=== PATIENT | female | born 1990 | race Caucasian/White ===

== ENCOUNTER 2018-04-09 17:16 | Inpatient (IN) | payer OTHER ==
[~2018-04-09] VITALS: Ht 152.4 cm; Wt 69.4 kg
[2018-04-09] MEDS ORDERED: CEFTRIAXONE 1 G PREMIX 50 ML IV ONE (19:45)
[2018-04-09] MEDS ORDERED: KETOROLAC 30MG/ML VIAL IV ONE (19:45)
[2018-04-09] MEDS ORDERED: SODIUM CHLORIDE 0.9% 1000ML BAG (SEPSIS BOLUS) IV ONE (19:45)
[2018-04-09 20:23] LABS: HEMATOCRIT. 39.5 % (36.0-48.0); HEMOGLOBIN. 13.3 g/dL (12.0-16.0); MEAN CORPUSCULAR HEMOGLOBIN 29.7 pg (28.0-32.0); MEAN CORPUSCULAR VOLUME 88.3 fL (81.0-99.0); MEAN PLATELET VOLUME 8.5 fl (7.4-10.4); PLATELET 274 x1000/uL (130-400); RED BLOOD CELL COUNT 4.48 mill/uL (4.2-5.4); RED CELL DISTRIBUTION WIDTH 12.3 % (11.6-14.6)
[2018-04-09 20:28] LABS: INR 1.2; PROTHROMBIN TIME 11.6 sec (9.1-11.1)
[2018-04-09 20:30] LABS: CHLORIDE 100 mEq/L (98-107)
[2018-04-09 20:46] LABS: PLATELET ESTIMATE NORMAL
[2018-04-09 22:40] LABS: CLARITY URINE TURBID (CLEAR); COLOR URINE DARK YELLOW (YELLOW); KETONES URINE 2+ (NEGATIVE); LEUKOCYTE ESTERASE URINE 3+ (NEGATIVE); NITRITE URINE NEGATIVE (NEGATIVE); OCCULT BLOOD URINE 2+ (NEGATIVE); PROTEIN URINE 2+ (NEGATIVE); SPECIFIC GRAVITY URINE 1.027 (1.005-1.030)
[2018-04-09] MEDS ORDERED: ONDANSETRON HCL 4MG/2ML INJ IV ONE (23:15)
[2018-04-10 04:00] VITALS: BP 136/77
[2018-04-10 05:48] VITALS: BP 136/77
[2018-04-10] MEDS ORDERED: MORPHINE SULFATE 4 MG/ML CPJ (NOT FOR IM USE) IV PRN (06:46)
[2018-04-10] MEDS: ACETAMINOPHEN 325MG TABLET PO PRN ×3 (06:53→18:48)
[2018-04-10 08:00] VITALS: BP 106/55
[2018-04-10 12:00] VITALS: BP 126/66
[2018-04-10 15:29] LABS: BASOPHILS % 0.4 % (0.0-2.0); HEMOGLOBIN. 11.8 g/dL (12.0-16.0); LYMPHOCYTES % 7.8 % (20.0-50.0); MEAN CORPUSCULAR HEMOGLOBIN 29.4 pg (28.0-32.0); MEAN CORPUSCULAR VOLUME 87.4 fL (81.0-99.0); MEAN PLATELET VOLUME 8.4 fl (7.4-10.4); NEUTROPHILS % 84.8 % (40.0-76.0); PLATELET 204 x1000/uL (130-400); RED CELL DISTRIBUTION WIDTH 12.2 % (11.6-14.6)
[2018-04-10 15:38] LABS: CHLORIDE 107 mEq/L (98-107)
[2018-04-10 15:43] LABS: HCG SCREEN NEGATIVE
[2018-04-10 16:00] VITALS: BP 137/63
[2018-04-10] MEDS ORDERED: KETOROLAC 15MG/ML VIAL IV PRN (17:30)
[2018-04-10] MEDS: ONDANSETRON HCL 4MG/2ML INJ IV PRN (18:48)
[2018-04-10] MEDS: SODIUM CHLORIDE 0.9% 1,000 ML IV SCH (19:52)
[2018-04-10 20:00] VITALS: BP 108/59
[2018-04-10] MEDS ORDERED: CEFTRIAXONE 1 G PREMIX 50 ML IV SCH (20:00)
[2018-04-11] VITALS (7 sets, daily range): BP systolic 99–139; BP diastolic 51–71
[2018-04-11] MEDS: ACETAMINOPHEN 325MG TABLET PO PRN ×3 (00:45→20:03)
[2018-04-11] MEDS: ONDANSETRON HCL 4MG/2ML INJ IV PRN (00:56)
[2018-04-11] MEDS ORDERED: NON FORMULARY PATIENT HOME MED EA XX SCH (01:15)
[2018-04-11] MEDS ORDERED: GENTAMICIN 120MG PREMIX 100 ML IV SCH ×2 (03:00→15:00)
[2018-04-11] MEDS: SODIUM CHLORIDE 0.9% 1,000 ML IV SCH (09:05)
[2018-04-11 09:49] LABS: BASOPHILS % 0.2 % (0.0-2.0); HEMATOCRIT. 34.2 % (36.0-48.0); HEMOGLOBIN. 11.4 g/dL (12.0-16.0); LYMPHOCYTES % 8.5 % (20.0-50.0); MEAN CORPUSCULAR HEMOGLOBIN 29.3 pg (28.0-32.0); MEAN CORPUSCULAR VOLUME 88.3 fL (81.0-99.0); MEAN PLATELET VOLUME 8.6 fl (7.4-10.4); MONOCYTES % 6.6 % (2.0-8.0); NEUTROPHILS % 84.7 % (40.0-76.0); PLATELET 186 x1000/uL (130-400); RED BLOOD CELL COUNT 3.88 mill/uL (4.2-5.4); RED CELL DISTRIBUTION WIDTH 12.3 % (11.6-14.6)
[2018-04-11 10:39] LABS: CHLORIDE 104 mEq/L (98-107)
[2018-04-11] MEDS ORDERED: GENTAMICIN SULFATE IV SCH (23:00)
[2018-04-11] MEDS ORDERED: SODIUM CHLORIDE 0.9% IV SCH (23:00)
== END 2018-04-11 20:05 | disposition short-term general hospital (02) | DRG 720 ==
LOC: ER 18:18 → 5WST 23:35 → EDBEDREQ 23:36 → EDBEDREQTM 23:36 → EDBEDREQSVC 23:36 → ENRESERV 04-10 01:14
PROVIDERS: ADMIT Internal Medicine; ATTEND Internal Medicine
DX: A41.9 Sepsis, unspecified organism (principal); E87.1 Hypo-osmolality and hyponatremia; E66.9 Obesity, unspecified; N13.6 Pyonephrosis; Z68.29 Body mass index [BMI] 29.0-29.9, adult
CPT/HCPCS: 36415; 71045; 74176; 76770; 80048; 83036; 83605; 84145; 84484; 84703; 87077; 87186; 93005; J0696; J1580; J1885; J2405; J7030; J7050